=== PATIENT | male | born 1990 ===

== ENCOUNTER 2016-03-23 12:36 | Emergency (ER) | payer OTHER ==
[2016-03-23] MEDS ORDERED: LIDOCAINE HCL 2% JELLY 1 APP/5 ML TUBE ONE (13:07)
[2016-03-23] MEDS ORDERED: NORMAL SALINE 1,000 ML IV ONE (14:08)
--- NOTE | 2016-03-23 14:34 | ER NURSING DOCUMENTATION ---
Nurse's Notes [facility], [place] Name:Javier Cardenas Age:25 yrs Sex:Male :1990 Arrival Date:03/23/2016 Time:12:36 Bed1 Private MD: Diagnosis:Finger Laceration Presentation: 03/23 12:40 Transition of care: patient was not received from another setting of care. Complicating nf Factors: There are no complicating factors for this patient. 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 12:50 Notified ED Physician of patient's arrival and CC Dr. Macias notified. nf Triage Assessment: 12:51 Compartment Syndrome symptoms: negative numbness, negative for severe pain, negative nf for tingling. General: Appears well nourished, well groomed, Behavior is pleasant. Pain: Complains of pain in at lacerations Pain does not radiate. Neuro: No deficits noted. Respiratory: No deficits noted. 18:36 Injury Description: Laceration sustained to right hand 1st digit over knuckle and 2nd nf digit laterally is contaminated, 2.6 to 7.5 cm long, not bleeding, contaminated with coffee grounds was sustained 30-60 minutes ago. Historical: - Allergies: No known drug Allergies; - Home Meds: 1. None - PMHx: None; - PSHx: None; - Tetanus: < 10 years. - Ebola Screening: : No symptoms or risks identified at this time. . - Immunization history: Flu Vaccine None. - Social history: Smoking status: Patient uses tobacco products, current every day smoker. Patient uses alcohol street drugs, marijuana. Screenin:53 Infectious Disease Risk None. Abuse screen: Denies threats or abuse. Nutritional nf screening: No deficits noted. Assessment: 12:41 See Triage Assessment done by same RN. nf 12:51 Musculoskeletal: No deficits noted. Injury Description: Laceration is contaminated. nf Vital Signs: 12:52 BP 124 / 60; Pulse 58; Resp 16; Temp 98.5(O); Pulse Ox 99% on R/A; Weight 72.57 kg; nf Height 5 ft. 7 in. (170.18 cm); Pain 6/10; 12:52 Body Mass Index 25.06 (72.57 kg, 170.18 cm) nf ED Course: 12:39 Patient arrived in ED. arc 12:40 Smiley Garcia, RN is Primary Nurse. nf 12:40 Triage completed. nf 12:41 Valuables Remains with patient. nf 12:51 Arm band placed on Bed in low position Call Light in Reach HOB Elevated Side rails up nf x1. 12:53 Door closed. Noise minimized. Lights dimmed. Moved to private room. Verbal reassurance nf given. Pillow given. 12:53 Assist Provider Assist provider with laceration repair Set up tray. nf 13:05 Pascual Macias MD is Attending Physician. sc 13:26 Wound care was Irrigation Normal Saline. nf 13:37 Assisted to bathroom. nf 14:15 Assist Provider Assist provider with laceration repair using sutures. Performed by nf Pascual Macias MD Dressed with bacitracin, vaseline gauze, and tube gauze Patient tolerated well. 14:21 Wound care was dressed with Vaseline gauze, Tube Gauze. st Administered Medications: 13:02 Drug: Lidocaine Ointment (2%) 1 application; Route: Topical; Site: wound; nf 13:27 Follow up: Response: Pain is decreased nf 13:15 Drug: Lidocaine (2 %) 10 ml; {Note: administered by DrChew.} Route: Infiltration; Site: nf wound; 13:28 Follow up: Response: No adverse reaction nf 14:21 Drug: Bacitracin Ointment (500 unit/g) 1 application; Route: Topical; Site: wound; st 18:42 Follow up: Response: Medication administered at discharge. nf Outcome: 14:22 Discharge ordered by . vt 14:30 Discharged to home ambulatory. st 14:30 Condition: improved 14:30 Discharge instructions given to patient, Instructed on discharge instructions, follow up and referral plans. medication usage. 14:33 [address] ED[address] st Signatures: Jeni Hoang RN RN Smiley Garcia, Pascual Mueller RN, MD MD vt Bekah Macias, Reg Reg arc
--- NOTE | 2016-03-23 14:34 | ER PHYSICIAN DOCUMENTATION ---
Physician Documentation [facility] Name:Javier Cardenas Age:25 yrs Sex:Male :1990 Arrival Date:03/23/2016 Time:12:36 Bed1 Private MD: Pascual Bates Disposition: 03/23/16 14:22 Discharged to Home/Self Care. Impression: Finger Laceration. - Condition is Good. - Discharge Instructions: FINGER LACERATION - LACERATION, Hand. - Medical Reconciliation form form. - Follow up: Emergency Department; When: 10 - 14 days; Reason: Staple/Suture removal. - Problem is new. - Symptoms have improved. HPI: 03/23 14:23 This 25 yrs old Unknown Male presents to ER via Private Vehicle with complaints of sc Laceration To Hand. 14:23 The patient has a laceration related to: cooking, occurred at work, and there are no sc complicating factors. The laceration(s) is(are) located on the lateral aspect of right hand and dorsal aspect of middle phalanx of right index finger. Onset: The symptom(s)/episode began/occurred just prior to arrival. Associated signs and symptoms: The patient has no apparent associated signs or symptoms. Historical: - Allergies: No known drug Allergies; - Home Meds: 1. None - PMHx: None; - PSHx: None; - Tetanus: < 10 years. - Ebola Screening: : No symptoms or risks identified at this time. . - Immunization history: Flu Vaccine None. - Social history: Smoking status: Patient uses tobacco products, current every day smoker. Patient uses alcohol street drugs, marijuana. ROS: 14:26 Constitutional: Negative for fever, chills, and weight loss. sc Eyes: Negative for injury, pain, redness, and discharge. Neck: Negative for injury, pain, and swelling. MS/Extremity: Negative for injury and deformity. Neuro: Negative for headache, weakness, numbness, tingling, and seizure. 14:26 Psych: Negative for depression, anxiety, suicide ideation, homicidal ideation, and sc hallucinations. 14:26 Skin: Positive for laceration(s). Exam: 14:26 Musculoskeletal/extremity: Extremities: grossly normal except: noted in the dorsal sc aspect of middle phalanx of right index finger and lateral aspect of right hand: laceration, Circulation is intact in all extremities. Sensation intact. Constitutional: This is a well developed, well nourished patient who is awake, alert, and in no acute distress. Head/Face: Normocephalic, atraumatic. 14:26 Eyes: Pupils equal round and reactive to light, extra-ocular motions intact. Lids and lashes normal. Conjunctiva and sclera are non-icteric and not injected. Cornea within normal limits. Periorbital areas with no swelling, redness, or edema. Vital Signs: 12:52 BP 124 / 60; Pulse 58; Resp 16; Temp 98.5(O); Pulse Ox 99% on R/A; Weight 72.57 kg; nf Height 5 ft. 7 in. (170.18 cm); Pain 6/10; 12:52 Body Mass Index 25.06 (72.57 kg, 170.18 cm) nf Laceration: 14:26 Wound Repair of 6cm ( 2.4in ) subcutaneous laceration to dorsal aspect of middle sc phalanx of right index finger and lateral aspect of right hand. Linear shaped.. Skin/tissue flap noted.. Distal neuro/vascular/tendon intact. Anesthesia: Digital block administered with 4 mls of 2% lidocaine. Wound prep: Extensive cleansing by nurse. Skin closed with 8 4-0 Nylon using Horizontal mattress sutures. Dressed with tube gauze. Patient tolerated well. MDM: 13:05 Patient medically screened. sc 14:27 Differential diagnosis: superficial laceration. Data reviewed: vital signs, nurses sc notes, and as a result, I will discharge patient. Counseling: I had a detailed discussion with the patient and/or guardian regarding: the historical points, exam findings, and any diagnostic results supporting the discharge/admit diagnosis, the need for outpatient follow up. 03/23 13:02 Order name: Wound Care; Complete Time: 13:28 nf 03/23 13:02 Order name: Dressing - Wound; Complete Time: 14:21 nf Dispensed Medications: 13:02 Drug: Lidocaine Ointment (2%) 1 application; Route: Topical; Site: wound; nf 13:27 Follow up: Response: Pain is decreased nf 13:15 Drug: Lidocaine (2 %) 10 ml; {Note: administered by DrChew.} Route: Infiltration; Site: nf wound; 13:28 Follow up: Response: No adverse reaction nf 14:21 Drug: Bacitracin Ointment (500 unit/g) 1 application; Route: Topical; Site: wound; st 18:42 Follow up: Response: Medication administered at discharge. nf Signatures: Jeni Hoang RN RN st Friel, Nicole, RN RN nf Chew, Scott, MD MD ca
== END 2016-03-23 14:33 | disposition home or self-care (01) ==
LOC: ER 12:36
DX: S61.210A Laceration without foreign body of right index finger without damage to nail, initial encounter (principal); W29.0XXA Contact with powered kitchen appliance, initial encounter; Y92.511 Restaurant or cafe as the place of occurrence of the external cause; Y93.G1 Activity, food preparation and clean up; Y99.0 Civilian activity done for income or pay
CPT/HCPCS: 12042; 99284; J7030